=== PATIENT | female | born 1950 | race Caucasian/White ===

== ENCOUNTER → 2018-07-11 | Outpatient (CLI) | payer MEDICARE ==
--- NOTE | 2018-07-12 11:30 | MM ---
Reason for exam: screening (asymptomatic). History: Patient is postmenopausal. Family history of breast cancer in sister. Physical Findings: A clinical breast exam by your physician is recommended on an annual basis and results should be correlated with mammographic findings. MG 3D Screening Mammo W/Cad Bilateral CC and MLO view(s) were taken. No prior studies available for comparison. The breast tissue is heterogeneously dense. This may lower the sensitivity of mammography. Benign calcifications in the left breast. There is no discrete abnormality. No significant changes when compared with prior studies. ASSESSMENT: Benign, BI-RAD 2 RECOMMENDATION: Routine screening mammogram of both breasts in 1 year.
== END | disposition home or self-care (01) ==
LOC: RADMAMWWP 12:50
PROVIDERS: ATTEND Family Medicine
DX: Z12.31 Encounter for screening mammogram for malignant neoplasm of breast (principal)
CPT/HCPCS: 77063; 77067

== ENCOUNTER → 2019-05-01 | Outpatient (CLI) | payer MEDICARE ==
--- NOTE | 2019-05-01 20:59 | MR ---
EXAMINATION TYPE: MR brain wo con DATE OF EXAM: 05/01/2019 COMPARISON: NONE HISTORY: Headache / Dizziness TECHNIQUE: Multiplanar, multisequence imaging of the brain and brainstem is performed without IV cont rast. IV contrast not given as patient refused. FINDINGS: Diffusion weighted images demonstrate no evidence of a recent infarct or other diffusion abnormality. There is no worrisome extra-axial fluid collection. There is mild ventricular and sulcal prominence. There are scattered foci of T2 hyperintensity seen throughout the white matter bilaterally. Lesions a re nonspecific in appearance and distribution but most likely on basis of product of chronic small ve ssel ischemic change in patient of this age. Midline structures demonstrate normal morphology. The craniocervical junction appears within normal limits. Normal vascular flow voids are present. The visualized sinuses are clear and the globes are i ntact. No suspicious opacification mastoid air cells is present. IMPRESSION: There is mild diffuse age-related cerebral atrophy and mild to moderate chronic small ves teri ischemic change.
--- NOTE | 2019-05-01 21:01 | MR ---
EXAMINATION TYPE: MR angio neck wo con DATE OF EXAM: 05/01/2019 COMPARISON: None. HISTORY: Headache / Dizziness Standard multiplanar, multisequence MRI departmental protocol Multiplanar, multisequence images of the neck were acquired. 2-D and 3-D reconstructed images created on an independent workstation and reviewed. Exam performed without contrast. FINDINGS: There is normal 3 vessel origin from the aortic arch. Right common carotid artery shows nor mal origin from right brachiocephalic artery. There is no significant stenosis in the right common or internal carotid artery including at level by carotid bulb. This patent right external carotid arter y shows no significant focal stenosis. There is no significant plaque or stenosis or left common or internal carotid artery including at lev el of carotid bulb. There is patent external carotid artery without significant stenosis. There is codominant vertebrobasilar system. Vertebral arteries are patent to basilar junction. IMPRESSION: No significant focal stenosis in common or internal carotid arteries bilaterally.
== END | disposition home or self-care (01) ==
LOC: RADMRIMAIN 16:03
PROVIDERS: ATTEND Family Medicine
DX: G31.1 Senile degeneration of brain, not elsewhere classified (principal); I67.82 Cerebral ischemia; R51 Headache
CPT/HCPCS: 70547; 70551

== ENCOUNTER → 2020-03-25 | Outpatient (CLI) | payer MEDICARE ==
--- NOTE | 2020-03-27 07:29 | MM ---
Reason for exam: screening (asymptomatic). Last mammogram was performed 1 year and 8 months ago. History: Patient is postmenopausal. Family history of breast cancer in sister. Physical Findings: A clinical breast exam by your physician is recommended on an annual basis and results should be correlated with mammographic findings. MG 3D Screening Mammo W/Cad Bilateral CC and MLO view(s) were taken. Prior study comparison: July 11, 2018, bilateral MG 3d screening mammo w/cad. There are benign appearing dystrophic round calcifications bilaterally. There is no discrete abnormality. ASSESSMENT: Benign, BI-RAD 2 RECOMMENDATION: Routine screening mammogram of both breasts in 1 year.
== END | disposition home or self-care (01) ==
LOC: RADMAMWWP 13:50
PROVIDERS: ATTEND Family Medicine
DX: Z12.31 Encounter for screening mammogram for malignant neoplasm of breast (principal)
CPT/HCPCS: 77063; 77067

== ENCOUNTER → 2020-06-20 | Outpatient (CLI) | payer MEDICARE ==
--- NOTE | 2020-06-20 09:47 | US ---
EXAMINATION TYPE: US abdomen complete DATE OF EXAM: 06/20/2020 COMPARISON: NONE CLINICAL HISTORY: R10.12 left upper quadrant pain. EXAM MEASUREMENTS: Liver Length: 13.4 cm Gallbladder Wall: Surgically absent CBD: 1.0 cm Spleen: 8.1 cm Right Kidney: 11.6 x 4.8 x 5.7 cm Left Kidney: 10.2 x 5.4 x 5.2 cm Pancreas: appears echogenic portions are obscured by bowel gas Liver: wnl Gallbladder: Surgically absent CBD: dilated at 1.0 cm Spleen: wnl Right Kidney: No hydronephrosis or masses seen Left Kidney: stone lower pole with shadowing measures 0.8 x 0.9 cm, no hydronephrosis. Upper IVC: wnl Abd Aorta: wnl IMPRESSION: 1. Nonobstructing inferior pole left renal stone
== END | disposition home or self-care (01) ==
LOC: RADUSWWP 06:57
PROVIDERS: ATTEND Family Medicine
DX: N20.0 Calculus of kidney (principal)
CPT/HCPCS: 76700

== ENCOUNTER 2021-08-17 11:06 | Emergency (ER) | payer MEDICARE ==
[2021-08-17 11:20] VITALS: TEMP 99.4
[2021-08-17] MEDS ORDERED: HYDROmorphone 0.5 MG/0.5 ML SYRINGE IVP STA (11:29)
[2021-08-17] MEDS ORDERED: KETOROLAC 15 MG/ML 1 ML VIAL IVP STA (11:29)
[2021-08-17] MEDS ORDERED: SODIUM CHLORIDE 0.9% 1,000 ML IV STA (11:29)
[2021-08-17] MEDS ORDERED: ONDANSETRON 4 MG/2 ML VIAL IVP STA (11:32)
--- NOTE | 2021-08-17 11:34 | ED ---
General Adult HPI - General Chief complaint: Abdominal Pain Stated complaint: Diverticulitis Time Seen by Provider: 08/17/21 11:20 Source: patient, RN notes reviewed, old records reviewed Mode of arrival: ambulatory Limitations: no limitations - History of Present Illness Initial comments: This is a 70-year-old female presents emergency Department stating that she's had right-sided flank pain since last Tuesday. Patient states she has a history of diverticulitis and kidney stones. Patient states she thought was diverticulitis that she started some antibiotics that she had left over. Patient states the pain continues get worse she has vomited times one and she has had no diarrhea. Patient states pressing on her abdomen does not appear to make the pain worse. Patient denies any dysuria hematuria urinary frequency. Patient states this morning the pain started radiating to her back in the CVA region. Patient denies any shortness of breath or difficulty breathing. Patient denies any fever chills or cough. Patient denies any headache patient denies numbness weakness. - Related Data Home Medications Medication Instructions Recorded Confirmed Ciprofloxacin HCl [Cipro] 500 mg PO DIRECTED 08/17/21 08/17/21 SUMAtriptan succinate 100 mg PO BID PRN 08/17/21 08/17/21 Topiramate [Topamax] 25 - 100 mg PO DAILY PRN 08/17/21 08/17/21 metroNIDAZOLE [Flagyl] 500 mg PO DIRECTED 08/17/21 08/17/21 Previous Rx's Medication Instructions Recorded Ketorolac [Toradol] 10 mg PO Q6HR #15 tab 08/17/21 Tamsulosin [Flomax] 0.4 mg PO DAILY #10 cap 08/17/21 Allergies Allergy/AdvReac Type Severity Reaction Status Date / Time morphine AdvReac Nausea & Verified 08/17/21 11:55 Vomiting Review of Systems ROS Statement: Those systems with pertinent positive or pertinent negative responses have been documented in the HPI. ROS Other: All systems not noted in ROS Statement are negative. Past Medical History Additional Past Medical History / Comment(s): diverticulitis, migraines History of Any Multi-Drug Resistant Organisms: None Reported Past Surgical History: Cholecystectomy Past Psychological History: No Psychological Hx Reported Smoking Status: Never smoker Past Alcohol Use History: None Reported Past Drug Use History: None Reported General Exam - General Exam Comments Initial Comments: GENERAL: Patient is well-developed and well-nourished. Patient is nontoxic and well- hydrated and is in mild distress. ENT: Neck is soft and supple. No significant lymphadenopathy is noted. Oropharynx i s clear. Moist mucous membranes. Neck has full range of motion without eliciting any pain. EYES: The sclera were anicteric and conjunctiva were pink and moist. Extraocular movements were intact and pupils were equal round and reactive to light. Eyelids were unremarkable. PULMONARY: Unlabored respirations. Good breath sounds bilaterally. No audible rales rhonchi or wheezing was noted. CARDIOVASCULAR: There is a regular rate and rhythm without any murmurs gallops or rubs. ABDOMEN: Soft and nontender with normal bowel sounds. SKIN: Skin is clear with no lesions or rashes and otherwise unremarkable. NEUROLOGIC: Patient is alert and oriented x3. Cranial nerves II through XII are grossly intact. Motor and sensory are also intact. Normal speech, volume and content. Symmetrical smile. MUSCULOSKELETAL: Normal extremities with adequate strength and full range of motion. No lower extremity swelling or edema. No calf tenderness. LYMPHATICS: No significant lymphadenopathy is noted PSYCHIATRIC: Normal psychiatric evaluation. Limitations: no limitations Course Vital Signs 08/17/21 11:17 Temperature 99.4 F Pulse Rate 84 Respiratory 18 Rate Blood Pressure 133/84 O2 Sat by Pulse 96 Oximetry Medical Decision Making - Medical Decision Making CT shows an 8 mm proximal ureteral stone causing obstruction. I will back into reevaluate the patient after the patient got Toradol patient was doing considerably better felt like she can be discharged home to follow-up with urology. - Lab Data Result diagrams: 08/17/21 11:56 08/17/21 11:56 Lab Results 08/17/21 08/17/21 08/17/21 Range/Units 11:56 11:56 11:56 WBC 10.8 H (3.8-10.6) k/uL RBC 4.77 (3.80-5.40) m/uL Hgb 14.6 (11.4-16.0) gm/dL Hct 44.6 (34.0-46.0) % MCV 93.6 (80.0-100.0) fL MCH 30.6 (25.0-35.0) pg MCHC 32.7 (31.0-37.0) g/dL RDW 13.1 (11.5-15.5) % Plt Count 253 (150-450) k/uL MPV 7.9 Neutrophils % 82 % Lymphocytes % 12 % Monocytes % 4 % Eosinophils % 1 % Basophils % 0 % Neutrophils # 8.8 H (1.3-7.7) k/uL Lymphocytes # 1.3 (1.0-4.8) k/uL Monocytes # 0.4 (0-1.0) k/uL Eosinophils # 0.1 (0-0.7) k/uL Basophils # 0.0 (0-0.2) k/uL Sodium 138 (137-145) mmol/L Potassium 4.5 (3.5-5.1) mmol/L Chloride 103 (98-107) mmol/L Carbon Dioxide 24 (22-30) mmol/L Anion Gap 11 mmol/L BUN 22 H (7-17) mg/dL Creatinine 0.73 (0.52-1.04) mg/dL Est GFR (CKD-EPI)AfAm >90 (>60 ml/min/1.73 sqM) Est GFR (CKD-EPI)NonAf 83 (>60 ml/min/1.73 sqM) Glucose 117 H (74-99) mg/dL Plasma Lactic Acid Oswald (0.7-2.0) mmol/L Calcium 9.3 (8.4-10.2) mg/dL Total Bilirubin 0.9 (0.2-1.3) mg/dL AST 46 H (14-36) U/L ALT 20 (4-34) U/L Alkaline Phosphatase 65 (38-126) U/L Total Protein 7.3 (6.3-8.2) g/dL Albumin 4.2 (3.5-5.0) g/dL Amylase 45 (30-110) U/L Lipase 92 (23-300) U/L Urine Color Yellow Urine Appearance Cloudy H (Clear) Urine pH 5.0 (5.0-8.0) Ur Specific [place] 1.020 (1.001-1.035) Urine Protein Trace H (Negative) Urine Glucose (UA) Negative (Negative) Urine Ketones 1+ H (Negative) Urine Blood Small H (Negative) Urine Nitrite Negative (Negative) Urine Bilirubin Negative (Negative) Urine Urobilinogen <2.0 (<2.0) mg/dL Ur Leukocyte Esterase Large H (Negative) Urine RBC 3 (0-5) /hpf Urine WBC 31 H (0-5) /hpf Ur Squamous Epith Cells 2 (0-4) /hpf Calcium Oxalate Crystal Few H (None) /hpf Urine Mucus Many H (None) /hpf // Range/Units 11:56 WBC (3.8-10.6) k/uL RBC (3.80-5.40) m/uL Hgb (11.4-16.0) gm/dL Hct (34.0-46.0) % MCV (80.0-100.0) fL MCH (25.0-35.0) pg MCHC (31.0-37.0) g/dL RDW (11.5-15.5) % Plt Count (150-450) k/uL MPV Neutrophils % % Lymphocytes % % Monocytes % % Eosinophils % % Basophils % % Neutrophils # (1.3-7.7) k/uL Lymphocytes # (1.0-4.8) k/uL Monocytes # (0-1.0) k/uL Eosinophils # (0-0.7) k/uL Basophils # (0-0.2) k/uL Sodium (137-145) mmol/L Potassium (3.5-5.1) mmol/L Chloride (98-107) mmol/L Carbon Dioxide (22-30) mmol/L Anion Gap mmol/L BUN (7-17) mg/dL Creatinine (0.52-1.04) mg/dL Est GFR (CKD-EPI)AfAm (>60 ml/min/1.73 sqM) Est GFR (CKD-EPI)NonAf (>60 ml/min/1.73 sqM) Glucose (74-99) mg/dL Plasma Lactic Acid Oswald 1.1 (0.7-2.0) mmol/L Calcium (8.4-10.2) mg/dL Total Bilirubin (0.2-1.3) mg/dL AST (14-36) U/L ALT (4-34) U/L Alkaline Phosphatase (38-126) U/L Total Protein (6.3-8.2) g/dL Albumin (3.5-5.0) g/dL Amylase (30-110) U/L Lipase (23-300) U/L Urine Color Urine Appearance (Clear) Urine pH (5.0-8.0) Ur Specific [place] (1.001-1.035) Urine Protein (Negative) Urine Glucose (UA) (Negative) Urine Ketones (Negative) Urine Blood (Negative) Urine Nitrite (Negative) Urine Bilirubin (Negative) Urine Urobilinogen (<2.0) mg/dL Ur Leukocyte Esterase (Negative) Urine RBC (0-5) /hpf Urine WBC (0-5) /hpf Ur Squamous Epith Cells (0-4) /hpf Calcium Oxalate Crystal (None) /hpf Urine Mucus (None) /hpf Disposition Clinical Impression: Kidney stone, Hydroureter Disposition: HOME SELF-CARE Condition: Good Instructions (If sedation given, give patient instructions): Kidney Stones (ED) Prescriptions: Tamsulosin [Flomax] 0.4 mg PO DAILY #10 cap Ketorolac [Toradol] 10 mg PO Q6HR #15 tab Is patient prescribed a controlled substance at d/c from ED?: No Referrals: Eren Pina MD [STAFF PHYSICIAN] - 1-2 days
[2021-08-17 12:18] LABS: Basophils % (A) 0 %; Eosinophils # (A) 0.1 k/uL (0-0.7); Eosinophils % (A) 1 %; HCT 44.6 % (34.0-46.0); HGB 14.6 gm/dL (11.4-16.0); Lymphocytes # (A) 1.3 k/uL (1.0-4.8); Lymphocytes % (A) 12 %; MCH 30.6 pg (25.0-35.0); MCHC 32.7 g/dL (31.0-37.0); MCV 93.6 fL (80.0-100.0); Mean Platelet Volume 7.9; Monocytes # (A) 0.4 k/uL (0-1.0); Monocytes % (A) 4 %; Neutrophils # (A) 8.8 k/uL (1.3-7.7); Neutrophils % (A) 82 %; Platelet Count 253 k/uL (150-450); RBC 4.77 m/uL (3.80-5.40); RDW 13.1 % (11.5-15.5); WBC 10.8 k/uL (3.8-10.6)
[2021-08-17 12:33] LABS: ALT 20 U/L (4-34); AST 46 U/L (14-36); African American GFR (CKD) >90 (>60 ml/min/1.73 sqM); Albumin 4.2 g/dL (3.5-5.0); Alkaline Phosphatase 65 U/L (38-126); Amylase 45 U/L (30-110); Anion Gap 11 mmol/L; Blood Urea Nitrogen 22 mg/dL (7-17); Calcium 9.3 mg/dL (8.4-10.2); Carbon Dioxide 24 mmol/L (22-30); Chloride 103 mmol/L (98-107); Glucose 117 mg/dL (74-99); Lipase 92 U/L (23-300); Non-African American GFR(CKD) 83 (>60 ml/min/1.73 sqM); Sodium 138 mmol/L (137-145); Total Bilirubin 0.9 mg/dL (0.2-1.3); Total Protein 7.3 g/dL (6.3-8.2)
[2021-08-17 12:36] LABS: Potassium 4.5 mmol/L (3.5-5.1)
[2021-08-17 12:46] LABS: Appearance,Urine Cloudy (Clear); Bilirubin,Urine Negative (Negative); Blood,Urine Small (Negative); Calcium Oxalate Crystals,Urine Few /hpf; Color,Urine Yellow; Glucose,Urine (UA) Negative (Negative); Ketones,Urine 1+ (Negative); Leukocyte Esterase,Urine Large (Negative); Mucus,Urine Many /hpf; Nitrite,Urine Negative (Negative); Protein,Urine Trace (Negative); RBC,Urine 3 /hpf (0-5); Squamous Epithelial Cell,Urine 2 /hpf (0-4); Urobilinogen,Urine <2.0 mg/dL (<2.0); WBC,Urine 31 /hpf (0-5)
--- NOTE | 2021-08-17 13:13 | CT ---
EXAMINATION TYPE: CT abdomen pelvis wo con DATE OF EXAM: 08/17/2021 COMPARISON: None HISTORY: 70-year-old female Left sided abdominal pain CT DLP: 576.1 mGycm. Automated exposure control for dose reduction was used. TECHNIQUE: Contiguous axial scanning of the abdomen and pelvis without IV contrast. Coronal and sagit deja reconstructions performed. FINDINGS: Heart normal size without pericardial effusion. Some strandy atelectasis at the posterior lung bases without pleural effusion. Small hiatal hernia. Focal eventration anterior right hemidiaphragm. Noncontrast appearance of the liver, adrenal glands, spleen, and pancreas show no gross of value. Cholecystectomy clips. There is a 3.8 cm diverticulum of the third portion of the duodenum projecting superiorly into the pa ncreatic head region. A few punctate 1 mm nonobstructive right renal calculi. There is moderate left hydronephrosis and an 8 mm calculus in the upper left ureter. No dilated small bowel, free fluid, or free air. No mesenteric or retroperitoneal lymphadenopathy. Normal appendix. Mild stool burden. Left-sided clonic diverticulosis, greatest in the proximal sigmoid colon. No peric olonic inflammatory changes. Bladder partially distended. There are a couple dependent bladder calculi measuring up to 7 mm. Uteru s anteverted. Multiple pelvic phleboliths. There is a drop surgical clip in the cul-de-sac. Small adi ateral ovaries. No abnormal fluid collection in the pelvis or pelvic lymphadenopathy. Bones: Osteitis pubis. Mild degenerative change at the hips, left greater than right. Moderate to ad vanced degenerative disc disease mid to lower lumbar spine with hypertrophic facet arthropathy. IMPRESSION: 1. An 8 mm proximal left ureteral calculus with moderate obstructive uropathy. 2. A couple small dependent bladder calculi measuring up to 7 mm. Additional few punctate 1 mm nonob structive right renal calculi. 3. Left-sided colonic diverticulosis without acute diverticulitis. Small hiatal hernia.
[2021-08-17 14:22] VITALS: BP 118/90; PULSE 81; RESP 16
== END 2021-08-17 14:29 | disposition home or self-care (01) ==
LOC: EC 11:06
DX: N20.0 Calculus of kidney (principal); N13.4 Hydroureter; Z88.5 Allergy status to narcotic agent; Z90.49 Acquired absence of other specified parts of digestive tract
CPT/HCPCS: 99284; 96374; 96375; 96361 ×2; 36415; 80053; 82150; 83605; 83690; 85025; 81001; 87086; 74176; J2405; J1885

== ENCOUNTER → 2021-08-20 | Outpatient (CLI) | payer MEDICARE ==
--- NOTE | 2021-08-21 08:40 | XR ---
EXAMINATION TYPE: XR KUB DATE OF EXAM: 08/20/2021 COMPARISON: NONE HISTORY: Pain TECHNIQUE: One view abdominal series FINDINGS: The osseous structures are intact. The bowel gas pattern is nonspecific. Hypertrophic and degenerati ve change of the spine with arthropathy of the hips. Osteitis pubis symphysis. Calcifications in pelv is are likely vascular. Surgical clips in the upper abdomen. There is a 3.5 mm calcification adjacent to the left transverse process of L4 which could be in the c ourse of the left ureter. IMPRESSION: 1. 3.5 mm in diameter and long axis of 7 mm left paraspinal line level L4 likely representing uretera l calculus. 2. Punctate calcifications in the pelvis have been reported by previous CT scan to represent bladder calculi..
== END | disposition home or self-care (01) ==
LOC: RADXRMAIN 16:09
PROVIDERS: ATTEND Urology
DX: N20.1 Calculus of ureter (principal)
CPT/HCPCS: 74018

== ENCOUNTER 2021-08-24 06:54 | Day surgery (SDC) | payer MEDICARE ==
[2021-08-21 09:37] VITALS: BMI 27.4
--- NOTE | 2021-08-22 10:29 | P.GSHP ---
History of Present Illness H&P Date: 08/22/21 Chief Complaint: Left renal colic The patient is a 70-year-old white female with a history of urolithiasis. She underwent successful left extracorporal shockwave lithotripsy (ESWL) in 2012. On 08/10/2021 she experienced acute onset of left flank and abdominal pain. Computed tomography scan showed moderate left hydronephrosis due to an 8 mm left proximal ureteral calculus. She was offered the options of medical expulsion therapy, ESWL, and ureteroscopy with laser lithotripsy. The pros, cons, and risks of each were discussed and she has elected to undergo ESWL. - Constitutional Constitutional: Reports chills, Denies fever - Gastrointestinal Gastrointestinal: Reports nausea, Reports vomiting - Genitourinary (Female) Genitourinary: Reports flank pain, Reports kidney stones, Denies hematuria Past Medical History Past Medical History: GERD/Reflux Additional Past Medical History / Comment(s): Diverticulitis, migraines, low BP, hx of kidney stones, current left kidney stone. History of Any Multi-Drug Resistant Organisms: None Reported Past Surgical History: Cholecystectomy Past Anesthesia/Blood Transfusion Reactions: Previous Problems w/ Anesthesia, Family History of Problems w/ Anesthesia, Motion Sickness, Postoperative Nausea & Vomiting (PONV) Additional Past Anesthesia/Blood Transfusion Reaction / Comment(s): Patient and sister slow to wake up. Past Psychological History: No Psychological Hx Reported Smoking Status: Never smoker Past Alcohol Use History: None Reported Past Drug Use History: None Reported - Past Family History Brother(s) Family Medical History: Cancer Additional Family Medical History / Comment(s): 3 brothers had cancer. Sister(s) Family Medical History: Cancer Medications and Allergies Home Medications Medication Instructions Recorded Confirmed Type Ketorolac [Toradol] 10 mg PO Q6HR #15 tab 08/17/21 08/21/21 Rx SUMAtriptan succinate 100 mg PO BID PRN 08/17/21 08/21/21 History Tamsulosin [Flomax] 0.4 mg PO DAILY #10 cap 08/17/21 08/21/21 Rx Topiramate [Topamax] 25 - 100 mg PO DAILY PRN 08/17/21 08/21/21 History [place] (Unknown Dose) 1 tab PO DIRECTED PRN 08/21/21 08/21/21 History Allergies Allergy/AdvReac Type Severity Reaction Status Date / Time morphine AdvReac Nausea & Verified 08/21/21 09:28 Vomiting Surgical - Exam - General well developed, well nourished, no distress - Neck no masses, trachea midline - Respiratory normal respiratory effort - Abdomen Abdomen: soft, tender (Mild left lower quadrant tenderness to palpation), no guarding, no rigid, no rebound - Psychiatric oriented to time, oriented to person, oriented to place, speech is normal, memory intact Results - Imaging Abdominal x-ray: report reviewed, image reviewed CT scan - abdomen: report reviewed, image reviewed Assessment and Plan (1) Calculus of ureter Status: Acute Code(s): N20.1 - CALCULUS OF URETER SNOMED Code(s): 62666856 Plan: Left extracorporal shockwave lithotripsy (ESWL). The procedure then reviewed in detail with the patient. She is aware of potential risks, which include anesthesia, renal contusion, perinephric hematoma, treatment failure, incomplete fragmentation, and [place]str[place]. She is aware of the possible need for secondary treatment.
--- NOTE | 2021-08-24 07:24 | XR ---
EXAMINATION TYPE: XR KUB DATE OF EXAM: 08/24/2021 7:14 AM CLINICAL HISTORY: Abdominal pain. Left-sided kidney stone. TECHNIQUE: Two supine KUB images of the abdomen are obtained. COMPARISON: Abdominal x-ray [address] abdomen and pelvis one week ago.. FINDINGS: Stable 10 mm calculus proximal to mid left ureter at L4 level. Overall nonobstructive bowel gas pattern. Sclerosis at pubic symphysis. Overlying bra strap. IMPRESSION: As above.
[2021-08-24 08:08] VITALS: RESP 16; TEMP 98.5
[2021-08-24] MEDS ORDERED: ONDANSETRON 4 MG/2 ML VIAL ONE (08:16)
[2021-08-24] MEDS ORDERED: LACTATED RINGERS 1,000 ML IV ONE (08:18)
[2021-08-24] MEDS ORDERED: LIDOCAINE 1% (10MG/ML) FOR IV START INTRADERMA ONE (08:19)
[2021-08-24] MEDS ORDERED: PROPOFOL 10 MG/ML 20 ML VIAL IV ONE (08:41)
[2021-08-24] MEDS ORDERED: KETAMINE 10 MG/ML 20 ML VIAL ONE (08:41)
[2021-08-24] MEDS ORDERED: MIDAZOLAM 2 MG/2 ML VIAL ONE (08:41)
[2021-08-24] MEDS ORDERED: .fentaNYL (PF) 50 MCG/ML 2 ML AMP ONE (08:41)
[2021-08-24] MEDS ORDERED: FUROSEMIDE 10 MG/ML 2 ML VIAL ONE (08:41)
--- NOTE | 2021-08-24 09:27 | P.OP ---
Date of Procedure: 08/24/21 Preoperative Diagnosis: Left ureteral calculus Postoperative Diagnosis: Same Procedure(s) Performed: Left extracorporal shockwave lithotripsy (ESWL) Anesthesia: MAC Surgeon: Xiang Urena Estimated Blood Loss (ml): 0 IV fluids (ml): 500 Pathology: none sent Condition: stable Disposition: PACU Indications for Procedure: The patient is a 70-year-old white female with a history of urolithiasis. She underwent successful left extracorporal shockwave lithotripsy (ESWL) in 2012. On 08/10/2021 she experienced acute onset of left flank and abdominal pain. Computed tomography scan showed moderate left hydronephrosis due to an 8 mm left proximal ureteral calculus. She was offered the options of medical expulsion therapy, ESWL, and ureteroscopy with laser lithotripsy. The pros, cons, and risks of each were discussed and she has elected to undergo ESWL. Operative Findings: Excellent fragmentation of left proximal ureteral calculus. Description of Procedure: The patient was taken to the operating room and placed on the Dornier Compact Delta II lithotripter in the supine position. The calculus was seen on biplanar fluoroscopy. Lasix 10 mg was given intravenously. Once the patient was properly positioned and sedated, lithotripsy was performed. The energy level was gradually increased per protocol, to an energy level of 5. After 100 shocks were administered, a 2 minute pause was instituted per protocol. A total of 2500 shocks were given at a rate of 80 shocks per minute. Fluoroscopy was utilized at a minimum to ensure proper positioning and determine the treatment status. The calculus changed in appearance, consistent with fragmentation. The patient tolerated the procedure well was taken to the recovery room in stable condition. Instructions were given to strain the urine, and the patient will follow-up within one week.
[2021-08-24 09:50] VITALS: PULSE 63
[2021-08-24 10:06] VITALS: BP 118/71
== END 2021-08-24 10:39 | disposition home or self-care (01) ==
LOC: ORWHC2ENDO 06:54
PROVIDERS: ATTEND Urology
DX: N13.2 Hydronephrosis with renal and ureteral calculous obstruction (principal); K21.9 Gastro-esophageal reflux disease without esophagitis; K57.90 Diverticulosis of intestine, part unspecified, without perforation or abscess without bleeding; G43.909 Migraine, unspecified, not intractable, without status migrainosus; Z79.899 Other long term (current) drug therapy; Z87.442 Personal history of urinary calculi; Z88.5 Allergy status to narcotic agent
CPT/HCPCS: 74018; 50590; J2250; J1940; J2405; J3010; J2704

== ENCOUNTER → 2021-09-01 | Outpatient (CLI) | payer MEDICARE ==
--- NOTE | 2021-09-01 13:28 | XR ---
EXAMINATION TYPE: XR KUB DATE OF EXAM: 09/01/2021 COMPARISON: 08/24/2021 HISTORY: Post lithotripsy TECHNIQUE: One view abdominal series FINDINGS: The previously noted left paraspinal calcification is not seen with certainty. Arthropathy of the hip s and osteitis pubis is convincing is noted. Arthropathy of the SI joints degenerative change of the spine. Nonspecific bowel gas pattern with no obstruction. Surgical clips right upper quadrant. Tiny c alcifications in pelvis are similar to the prior exam and likely vascular. Single surgical clip again noted in IMPRESSION: 1. Left paraspinal calcification is no longer seen on today's exam.
== END | disposition home or self-care (01) ==
LOC: RADXRMAIN 13:09
PROVIDERS: ATTEND Urology
DX: Z48.816 Encounter for surgical aftercare following surgery on the genitourinary system (principal)
CPT/HCPCS: 74018

== ENCOUNTER → 2021-10-06 | Outpatient (CLI) | payer MEDICARE ==
--- NOTE | 2021-10-06 09:05 | US ---
EXAMINATION TYPE: US kidneys/renal and bladder DATE OF EXAM: 10/06/2021 COMPARISON: CT June 20, 2020 and August 17, 2021. Most recent x-ray September 01, 2021 CLINICAL HISTORY: N20.1 CALCULUS OF URETER LT, N13.2 HYDRONEPHROSIS. History of left renal stone with lithotripsy. EXAM MEASUREMENTS: Right Kidney: 10.9 x 4.9 x 4.5 cm Left Kidney: 9.4 x 5.9 x 5.9 cm Right Kidney: No hydronephrosis or masses seen Left Kidney: No hydronephrosis or masses seen Bladder: Not fully distended Bilateral Jets seen: Yes There is no evidence for hydronephrosis at this point in time bilaterally. No nephrolithiasis is see n. No masses are identified. The urinary bladder is satisfactorily distended. Bilateral ureteral j ets are seen. IMPRESSION: No hydronephrosis seen currently. Successful treatment of obstructing left ureter calculu s is felt present.
== END | disposition home or self-care (01) ==
LOC: RADUSWWP 08:15
PROVIDERS: ATTEND Urology
DX: N20.1 Calculus of ureter (principal)
CPT/HCPCS: 76770

== ENCOUNTER → 2021-12-29 | Outpatient (CLI) | payer MEDICARE ==
--- NOTE | 2021-12-29 22:34 | BD ---
EXAMINATION TYPE: Axial Bone Density DATE OF EXAM: 12/29/2021 COMPARISON: NONE CLINICAL HISTORY: 71 years year old Female. ICD-10 CODE: Z78.0 Post menopausal w/o HRT Height: 5 FT 2 1/2 IN Weight: 160 FRAX RISK QUESTIONS: Alcohol (3 or more units per day): NO Family History (Parent hip fracture): NO Glucocorticoids (More than 3mos): NO (Ex: prednisone, prednisolone, methylprednisolone, dexamethasone, and hydrocortisone). History of Fracture in Adulthood: NO Secondary Osteoporosis: 1. Type 1 Diabetes: NO 2. Hyperthyroidism: NO 3. Menopause before 45: NO 4. Malnutrition: NO 5. Chronic liver disease: NO Rheumatoid Arthritis: YES Current Tobacco Use: NO RISK FACTORS HISTORY OF: Surgery to Spine/Hip(right/left)/Wrist (right/left): NO Family History of Osteoporosis: NO Active: YES Diet low in dairy products/other sources of calcium: NO Postmenopausal woman: YES Take estrogen and/or progesterone medications: NO Lost more than 2 inches in height since high school: YES Frequent falls: NO Poor Health: GOOD Hyperparathyroidism: NO Adrenal Insufficiency: NO MEDICATIONS: Additional Medications: MIGRAINE MEDS Additional History: EXAM MEASUREMENTS: Bone mineral densitometry was performed using the [employer] System. Bone mineral density as measured about the Lumbar spine is: ----- L1-L4(G/cm2): 0.993 T Score Values are as follows: ----- L1: -1.6 ----- L2: -2.7 ----- L3: -1.2 ----- L4: -1.0 ----- L1-L4: -1.6 BASELINE Bone mineral density about the R hip (g/cm2): 0.716 Bone mineral density about the L hip (g/cm2): 0.677 T Score values are as follows: -----R Neck: -2.3 -----L Neck: -2.6 -----R Total: -1.9 -----L Total: -1.9 BASELINE FRAX%s: The graph provided illustrates a 16.7 % chance for a major osteoporotic fx and a 5.1 % chance for the hips probability for fx in 10 years time. IMPRESSION: Osteoporosis (T Score less than -2.5) at the femoral neck level in the left hip. There is increased fracture risk and therapy is usually indicated based on age. Re-Screen 1-2 years. NOTE: T-SCORE=SD OF THE YOUNG ADULT MEAN.
--- NOTE | 2021-12-30 12:26 | MM ---
Reason for exam: screening (asymptomatic). Last mammogram was performed 1 year and 9 months ago. History: Patient is postmenopausal. Family history of breast cancer in sister. Physical Findings: A clinical breast exam by your physician is recommended on an annual basis and results should be correlated with mammographic findings. MG 3D Screening Mammo W/Cad Bilateral CC and MLO view(s) were taken. XCCL view(s) were taken of the right breast. Prior study comparison: March 25, 2020, bilateral MG 3d screening mammo w/cad. July 11, 2018, bilateral MG 3d screening mammo w/cad. The breast tissue is heterogeneously dense. This may lower the sensitivity of mammography. No significant changes when compared with prior studies. ASSESSMENT: Benign, BI-RAD 2 RECOMMENDATION: Routine screening mammogram of both breasts in 1 year.
== END | disposition home or self-care (01) ==
LOC: RADMAMWWP 07:38
PROVIDERS: ATTEND Family Medicine
DX: Z12.31 Encounter for screening mammogram for malignant neoplasm of breast (principal); M81.0 Age-related osteoporosis without current pathological fracture; Z78.0 Asymptomatic menopausal state; Z80.3 Family history of malignant neoplasm of breast
CPT/HCPCS: 77063; 77067; 77080

== ENCOUNTER 2023-07-10 15:13 | Emergency (ER) | payer MEDICARE ==
[2023-07-10 15:23] VITALS: TEMP 98.2
[2023-07-10] MEDS ORDERED: SODIUM CHLORIDE 0.9% 1,000 ML IV STA (16:04)
[2023-07-10] MEDS ORDERED: ASPIRIN 81 MG PO STA (16:04)
[2023-07-10] MEDS ORDERED: LIDOCAINE 5% PATCH TOPICAL STA (16:05)
[2023-07-10] MEDS ORDERED: KETOROLAC 15 MG/ML 1 ML VIAL IVP STA (16:05)
[2023-07-10] MEDS ORDERED: CYCLOBENZAPRINE 5 MG TAB PO STA (16:06)
[2023-07-10 16:20] LABS: Basophils % (A) 0 %; Eosinophils # (A) 0.1 k/uL (0-0.7); Eosinophils % (A) 1 %; HCT 41.2 % (34.0-46.0); HGB 13.7 gm/dL (11.4-16.0); Lymphocytes # (A) 1.9 k/uL (1.0-4.8); Lymphocytes % (A) 19 %; MCHC 33.3 g/dL (31.0-37.0); MCV 92.9 fL (80.0-100.0); Mean Platelet Volume 7.9; Monocytes # (A) 0.5 k/uL (0-1.0); Monocytes % (A) 5 %; Neutrophils # (A) 7.3 k/uL (1.3-7.7); Neutrophils % (A) 74 %; Platelet Count 268 k/uL (150-450); RBC 4.43 m/uL (3.80-5.40); RDW 12.7 % (11.5-15.5); WBC 9.9 k/uL (3.8-10.6)
--- NOTE | 2023-07-10 16:24 | XR ---
EXAMINATION TYPE: XR chest 2V DATE OF EXAM: 07/10/2023 COMPARISON: NONE HISTORY: Chest pain TECHNIQUE: Frontal and lateral views of the chest are obtained. FINDINGS: There is no focal air space opacity, pleural effusion, or pneumothorax seen. The cardiac silhouette size is within normal limits. There is mild prominence of the interstitium possibly chronic in taylor ure. The osseous structures are intact. IMPRESSION: No acute cardiopulmonary process.
[2023-07-10 16:32] LABS: INR 0.9 (<1.2); Partial Thromboplastin Time 23.3 sec (22.0-30.0); Prothrombin Time 10.5 sec (10.0-12.5)
[2023-07-10 16:38] LABS: ALT 18 U/L (4-34); AST 20 U/L (14-36); African American GFR (CKD) 88 (>60 ml/min/1.73 sqM); Alkaline Phosphatase 63 U/L (38-126); Anion Gap 11 mmol/L; Blood Urea Nitrogen 12 mg/dL (7-17); Calcium 9.4 mg/dL (8.4-10.2); Carbon Dioxide 25 mmol/L (22-30); Chloride 103 mmol/L (98-107); Glucose 86 mg/dL (74-99); Lipase 262 U/L (23-300); Magnesium 1.4 mg/dL (1.6-2.3); Non-African American GFR(CKD) 76 (>60 ml/min/1.73 sqM); Potassium 3.8 mmol/L (3.5-5.1); Sodium 139 mmol/L (137-145); Total Bilirubin 0.8 mg/dL (0.2-1.3); Total Protein 7.1 g/dL (6.3-8.2)
--- NOTE | 2023-07-10 16:42 | CT ---
EXAMINATION TYPE: CT cervical spine wo con DATE OF EXAM: 07/10/2023 COMPARISON: None HISTORY: left radiculopathy neck pain CT DLP: 298.8 mGycm Automated exposure control for dose reduction was used. TECHNIQUE: CT scan of the cervical spine is obtained without contrast, axial images are obtained, sa gittal and coronal reformatted images are also reviewed. FINDINGS: The craniovertebral junction relationships and prevertebral soft tissues are normal. The cervical vertebral segments are normal in height and alignment and there is no fracture subluxati on. There is moderate degenerative disc disease from C3 through C7 where there is moderate disc space fredrick rowing and spondylosis. There is moderate degenerative change of the uncovertebral joints in the mid and lower cervical spine but there is no significant bony encroachment of the neural foramina or cervical canal. IMPRESSION: Moderate degenerative disc disease and osteoarthritic change of the uncovertebral joints as described above.
[2023-07-10 16:46] VITALS: RESP 18
--- NOTE | 2023-07-10 17:31 | CT ---
EXAMINATION TYPE: CT chest angio for PE DATE OF EXAM: 07/10/2023 COMPARISON: None HISTORY: Chest pain, high d-dimer CT DLP: 372.6 mGycm Automated exposure control for dose reduction was used. CONTRAST: CT Chest for pulmonary embolism performed with with IV Contrast, patient injected with 80 cc mL of Is ovue 370. FINDINGS: LUNGS: The lungs are grossly clear, there is no concerning parenchymal mass or nodule identified. T here is no pleural effusion or pneumothorax seen. The tracheobronchial tree is patent. MEDIASTINUM: There is satisfactory enhancement of the pulmonary artery and its branches, there is no CT evidence for pulmonary embolism. There are no greater than 1 cm hilar or mediastinal lymph nodes. No pericardial effusion is seen. OTHER: No additional significant abnormality is seen. IMPRESSION: 1. No evidence of pulmonary embolism. 2. No acute cardiopulmonary disease.
--- NOTE | 2023-07-10 20:10 | ED ---
General Adult HPI - General Chief complaint: Chest Pain Stated complaint: shoulder pain Time Seen by Provider: 07/10/23 15:34 Source: patient, RN notes reviewed, old records reviewed Mode of arrival: ambulatory Limitations: no limitations - History of Present Illness Initial comments: Patient is a 72-year-old female presents with the Department complaining of left shoulder pain. States she began experiencing left shoulder pain after trying to lift a box of puppies 2 days ago. States it is progressively getting worse. Seems to radiate towards her left neck, and also down into her the top part of her left chest. Denies any fevers, chills, cough. Has no cardiac history. No history of hyperlipidemia. Pain is worse with movement of the left shoulder. Improved with rest. Has not taken much in terms of analgesic medication at home for treatment. Denies any abdominal pain, nausea, vomiting, diaphoretic episodes. He presents for further evaluation at this time. No history of cardiac stents. No family history of cardiac issues. - Related Data Home Medications Medication Instructions Recorded Confirmed SUMAtriptan succinate 100 mg PO BID PRN 08/17/21 07/10/23 Topiramate [Topamax] 75 mg PO HS 08/17/21 07/10/23 Previous Rx's Medication Instructions Recorded Cyclobenzaprine [Flexeril] 5 mg PO BID PRN 7 Days #14 tablet 07/10/23 Lidocaine 5% Patch [Lidoderm 5% 1 patch TOPICAL DAILY PRN 7 Days 07/10/23 Patch] #14 patch Allergies Allergy/AdvReac Type Severity Reaction Status Date / Time chlordiazepoxide Allergy Hallucinati Verified 07/10/23 17:50 [From Librium] ons morphine AdvReac Nausea & Verified 07/10/23 17:50 Vomiting Review of Systems ROS Statement: Those systems with pertinent positive or pertinent negative responses have been documented in the HPI. Review of Systems: CONST: Denies fever EYES: Denies blurry vision ENT: Denies nasal congestion C/V: Denies Chest pain RESP: Denies shortness of breath GI: Denies abdominal pain : Denies dysuria SKIN: Denies rash. MSK: Endorses Shoulder pain NEURO: Denies headache ROS Other: All systems not noted in ROS Statement are negative. Past Medical History Past Medical History: GERD/Reflux Additional Past Medical History / Comment(s): Diverticulitis, migraines, low BP, hx of kidney stones, current left kidney stone. History of Any Multi-Drug Resistant Organisms: None Reported Past Surgical History: Cholecystectomy Past Anesthesia/Blood Transfusion Reactions: Previous Problems w/ Anesthesia, Family History of Problems w/ Anesthesia, Motion Sickness, Postoperative Nausea & Vomiting (PONV) Additional Past Anesthesia/Blood Transfusion Reaction / Comment(s): Patient and sister slow to wake up. Past Psychological History: No Psychological Hx Reported Smoking Status: Never smoker Past Alcohol Use History: None Reported Past Drug Use History: None Reported - Past Family History Brother(s) Family Medical History: Cancer Additional Family Medical History / Comment(s): 3 brothers had cancer. Sister(s) Family Medical History: Cancer General Exam - General Exam Comments Initial Comments: General: Appears in no acute distress. HEAD: Normal with no signs of head trauma. EYES: PERRLA, EOMI, conjunctiva normal, no discharge. ENT: Hearing grossly intact, normal oropharynx. RESPIRATORY: Clear breath sounds bilaterally. No wheezes, rales, or rhonchi. C/V: Regular rate and rhythm. S1 and S2 auscultated, no edema, peripheral pulses 2+ and intact throughout ABD: Abd is soft, nontender, nondistended EXT: Decreased range of motion of the left shoulder secondary to pain. Rest palpation in the left deltoid, left trapezius muscle, left superior pectoral muscle. Worse with movement. Normal range of motion passively. Neurovascular intact throughout. SKIN: No rashes or lesions observed on exposed skin. NEURO: Alert and oriented 4 Limitations: no limitations Course Vital Signs 07/10/23 07/10/23 15:15 16:35 Temperature 98.2 F Pulse Rate 82 87 Respiratory 20 18 Rate Blood Pressure 131/83 O2 Sat by Pulse 94 L Oximetry Medical Decision Making - Medical Decision Making Was pt. sent in by a medical professional or institution (, PA, INTERNET PROGRAMMER, urgent care, hospital, or snf...) When possible be specific @ -No Did you speak to anyone other than the patient for history (EMS, parent, family, police, friend...)? What history was obtained from this source @ -No Did you review nursing and triage notes (agree or disagree)? Why? @ -I reviewed and agree with nursing and triage notes, except patient is complaining more of left shoulder pain with some radiation towards the left chest. Triage indicated was more of a chest pain with radiation. Primary complaint is reproducible what appears appears to be muscular skeletal left shoulder pain. Were old charts reviewed (outside hosp., previous admission, EMS record, old EKG, old radiological studies, urgent care reports/EKG's, snf records)? Report findings @ -Old charts reviewed Differential Diagnosis (chest pain, altered mental status, abdominal pain women, abdominal pain men, vaginal bleeding, weakness, fever, dyspnea, syncope, headache, dizziness, GI bleed, back pain, seizure, CVA, palpatations, mental health, musculoskeletal)? @ -Differential Musculoskeletal Muscular strain, contusion, ligament sprain, fracture, arthritis, septic arthritis, bursitis, cellulitis, muscle spasm, nerve compression, DVT, arterial occlusion, herpes zoster, electrolyte abnormality, tumor.... This is not meant to be in all inclusive list Differential Chest Pain: Stable Angina, Unstable Angina, STEMI, NSTEMI Aortic Dissection, Pneumothorax, Musculoskeletal, Esophageal Spasm GERD, Cholecystitis, Pancreatitis, Zoster, this is not meant to be an all-inclusive list. EKG interpreted by me (3pts min.). @ -As above X-rays interpreted by me (1pt min.). @ -Ray reveals no evidence of acute cardiopulmonary process. CT interpreted by me (1pt min.). @ -Cervical spine CT negative for any obvious injury. CT PE negative for pulmonary embolus. U/S interpreted by me (1pt. min.). @ -None done What testing was considered but not performed or refused? (CT, X-rays, U/S, labs)? Why? @ -None What meds were considered but not given or refused? Why? @ -None Did you discuss the management of the patient with other professionals (prof junior i.e. , PA, INTERNET PROGRAMMER, lab, RT, psych nurse, social services specialist, trial lawyer, teacher, contracts officer, caseworker protective services)? Give summary @ -No Was smoking cessation discussed for >3mins.? @ -No Was critical care preformed (if so, how long)? @ -No Were there social determinants of health that impacted care today? How? (Homelessness, low income, unemployed, alcoholism, drug addiction, transportat ion, low edu. Level, literacy, decrease access to med. care, penitentiary, rehab)? @ -No Was there de-escalation of care discussed even if they declined (Discuss DNR or withdrawal of care, Hospice)? DNR status @ -No What co-morbidities impacted this encounter? (DM, HTN, Smoking, COPD, CAD, Cancer, CVA, ARF, Chemo, Hep., AIDS, mental health diagnosis, sleep apnea, morbid obesity)? @ -None Was patient admitted / discharged? Hospital course, mention meds given and route, prescriptions, significant lab abnormalities, going to OR and other pertinent info. @ -Based on the patient's presentation and physical exam, presents with what appears to be musculoskeletal shoulder pain. Workup started in triage. We'll complete cardiopulmonary workup. Patient was symptomatically treated with aspirin, Flexeril, Toradol, lidocaine patch and 1 L fluid bolus. Patient agreement this plan. Vital signs within acceptable limits. EKG normal. Chest x-ray and cervical spine CT negative for any obvious acute process. Patient's labs remarkable for undetectable troponin, as well as an elevated d-dimer 3.28. I did discuss with the patient the elevated d-dimer and we will obtain CT PE. She was in agreement this plan. CTPE negative for pulmonary embolism. 3 hour troponin also negative. Patient's heart score is low at 2-3 with 2 negative troponins. Discussed with the patient and she would like to go home. Diagnosis likely muscle strain. Recommended follow-up with PCP. She was in agreement this plan. Strict return precautions discussed. I instructed the patient to follow up with their PCP in the next 1-3 days. I explained that the patient should return to the emergency department if they experience any worsening symptoms. Strict return precautions were discussed with the patient. The patient expressed understanding of these instructions. I answer ed all questions that the patient had. The patient was discharged home in good condition with their prescriptions and follow up information. Undiagnosed new problem with uncertain prognosis? @ -No Drug Therapy requiring intensive monitoring for toxicity (Heparin, Nitro, Insulin, Cardizem)? @ -No Were any procedures done? @ -No Diagnosis/symptom? @ -Left shoulder strain Acute, or Chronic, or Acute on Chronic? @ -Acute Uncomplicated (without systemic symptoms) or Complicated (systemic symptoms)? @ -Uncomplicated Side effects of treatment? @ -No Exacerbation, Progression, or Severe Exacerbation? @ -No Poses a threat to life or bodily function? How? (Chest pain, USA, MD, pneumonia, PE, COPD, DKA, ARF, appy, cholecystitis, CVA, Diverticulitis, Homicidal, Suicidal, threat to staff... and all critical care pts) @ -No - Lab Data Result diagrams: 07/10/23 16:08 07/10/23 16:08 Lab Results 07/10/23 07/10/23 07/10/23 Range/Units 16:08 16:08 16:08 WBC 9.9 (3.8-10.6) k/uL RBC 4.43 (3.80-5.40) m/uL Hgb 13.7 (11.4-16.0) gm/dL Hct 41.2 (34.0-46.0) % MCV 92.9 (80.0-100.0) fL MCH 31.0 (25.0-35.0) pg MCHC 33.3 (31.0-37.0) g/dL RDW 12.7 (11.5-15.5) % Plt Count 268 (150-450) k/uL MPV 7.9 Neutrophils % 74 % Lymphocytes % 19 % Monocytes % 5 % Eosinophils % 1 % Basophils % 0 % Neutrophils # 7.3 (1.3-7.7) k/uL Lymphocytes # 1.9 (1.0-4.8) k/uL Monocytes # 0.5 (0-1.0) k/uL Eosinophils # 0.1 (0-0.7) k/uL Basophils # 0.0 (0-0.2) k/uL PT 10.5 (10.0-12.5) sec INR 0.9 (<1.2) APTT 23.3 (22.0-30.0) sec D-Dimer 3.28 H (<0.60) mg/L FEU Sodium 139 (137-145) mmol/L Potassium 3.8 (3.5-5.1) mmol/L Chloride 103 (98-107) mmol/L Carbon Dioxide 25 (22-30) mmol/L Anion Gap 11 mmol/L BUN 12 (7-17) mg/dL Creatinine 0.77 (0.52-1.04) mg/dL Est GFR (CKD-EPI)AfAm 88 (>60 ml/min/1.73 sqM) Est GFR (CKD-EPI)NonAf 76 (>60 ml/min/1.73 sqM) Glucose 86 (74-99) mg/dL Calcium 9.4 (8.4-10.2) mg/dL Magnesium 1.4 L (1.6-2.3) mg/dL Total Bilirubin 0.8 (0.2-1.3) mg/dL AST 20 (14-36) U/L ALT 18 (4-34) U/L Alkaline Phosphatase 63 (38-126) U/L Troponin I (0.000-0.034) ng/mL NT-Pro-B Natriuret Pep pg/mL Total Protein 7.1 (6.3-8.2) g/dL Albumin 4.0 (3.5-5.0) g/dL Lipase 262 (23-300) U/L 07/10/23 07/10/23 07/10/23 Range/Units 16:08 16:08 18:41 WBC (3.8-10.6) k/uL RBC (3.80-5.40) m/uL Hgb (11.4-16.0) gm/dL Hct (34.0-46.0) % MCV (80.0-100.0) fL MCH (25.0-35.0) pg MCHC (31.0-37.0) g/dL RDW (11.5-15.5) % Plt Count (150-450) k/uL MPV Neutrophils % % Lymphocytes % % Monocytes % % Eosinophils % % Basophils % % Neutrophils # (1.3-7.7) k/uL Lymphocytes # (1.0-4.8) k/uL Monocytes # (0-1.0) k/uL Eosinophils # (0-0.7) k/uL Basophils # (0-0.2) k/uL PT (10.0-12.5) sec INR (<1.2) APTT (22.0-30.0) sec D-Dimer (<0.60) mg/L FEU Sodium (137-145) mmol/L Potassium (3.5-5.1) mmol/L Chloride (98-107) mmol/L Carbon Dioxide (22-30) mmol/L Anion Gap mmol/L BUN (7-17) mg/dL Creatinine (0.52-1.04) mg/dL Est GFR (CKD-EPI)AfAm (>60 ml/min/1.73 sqM) Est GFR (CKD-EPI)NonAf (>60 ml/min/1.73 sqM) Glucose (74-99) mg/dL Calcium (8.4-10.2) mg/dL Magnesium (1.6-2.3) mg/dL Total Bilirubin (0.2-1.3) mg/dL AST (14-36) U/L ALT (4-34) U/L Alkaline Phosphatase (38-126) U/L Troponin I <0.012 <0.012 (0.000-0.034) ng/mL NT-Pro-B Natriuret Pep 169 pg/mL Total Protein (6.3-8.2) g/dL Albumin (3.5-5.0) g/dL Lipase (23-300) U/L - EKG Data -: EKG Interpreted by Me EKG Comments: 12-lead Electrocardiogram Interpretation Note EKG was reviewed and interpreted by myself. 12-lead ECG performed at 1522 is interpreted by me as revealing normal sinus rhythm at a rate of 84 beats per minute. [place] is normal. MO interval is 204 ms, QRS duration is 90 ms, QTc is 392 ms. Isolated T-wave inversion in lead III.. There were no ST or T wave abnormalities to suggest myocardial ischemia or injury. R wave progression across the precordium was satisfactory. By my interpretation this EKG is non- diagnostic for acute ischemia. Disposition Clinical Impression: Left shoulder strain Disposition: HOME SELF-CARE Condition: Good Instructions (If sedation given, give patient instructions): Shoulder Sprain (ED) Prescriptions: Cyclobenzaprine [Flexeril] 5 mg PO BID PRN 7 Days #14 tablet PRN Reason: Pain Lidocaine 5% Patch [Lidoderm 5% Patch] 1 patch TOPICAL DAILY PRN 7 Days #14 patch PRN Reason: Pain Is patient prescribed a controlled substance at d/c from ED?: No Referrals: Candice Villarreal MD [Primary Care Provider] - 1-2 days Time of Disposition: 19:58
[2023-07-10 20:19] VITALS: BP 108/62; PULSE 77
== END 2023-07-10 20:36 | disposition home or self-care (01) ==
LOC: EC 15:13
DX: S46.912A Strain of unspecified muscle, fascia and tendon at shoulder and upper arm level, left arm, initial encounter (principal); Z88.5 Allergy status to narcotic agent; Z88.8 Allergy status to other drugs, medicaments and biological substances; X50.9XXA Other and unspecified overexertion or strenuous movements or postures, initial encounter
CPT/HCPCS: 99285; 96374; 96361; 36415; 93005; 85379; 83880; 80053; 83690; 83735; 84484; 85025; 85610; 85730; 71046; 72125; 71275; J1885; Q9967

== ENCOUNTER → 2024-01-02 | Outpatient (CLI) | payer MEDICARE ==
--- NOTE | 2023-11-09 08:15 | MM ---
Reason for Exam: Screening (asymptomatic). Last mammogram was performed 1 year(s) and 11 month(s) ago. Patient History: Menarche at age 13. First Full-Term at age 16. Postmenopausal. Sister had breast cancer. Risk Values: Azra 5 year model risk: 3.0%. NCI Lifetime model risk: 6.4%. Prior Study Comparison: 07/11/2018 Bilateral Screening Mammogram, [facility]. 03/25/2020 Bilateral Screening Mammogram, [facility]. 12/29/2021 Bilateral Screening Mammogram, [facility]. Tissue Density: The breast tissue is heterogeneously dense. This may lower the sensitivity of mammography. Findings: Analyzed By CAD. There is no suspicious group of microcalcifications or new suspicious mass in either breast. Overall Assessment: Benign, BI-RAD 2 Management: Screening Mammogram of both breasts in 1 year. . Patient should continue monthly self-breast exams. A clinical breast exam by your physician is recommended on an annual basis. This exam should not preclude additional follow-up of suspicious palpable abnormalities. Note on Azra scores and lifetime risk: 1. A Azra score greater than 3% is considered moderate risk. If this is the case, consider specialist referral to assess eligibility for a risk reducing agent. 2. If overall lifetime risk for the development of breast cancer is 20% or higher, the patient may qualify for future screening with alternating mammogram and breast MRI. Electronically signed and approved by: Jamin Sarkar M.D. Radiologis
--- NOTE | 2024-01-02 17:42 | BD ---
EXAMINATION TYPE: Axial Bone Density DATE OF EXAM: 01/02/2024 CLINICAL HISTORY: 73 years old Female. ICD-10 CODE: M81.0 AGE-RELATED OSTEOPOROSIS Height: 63 Weight: 160 FRAX RISK QUESTIONS: Family History (Parent hip fracture): no History of Fracture in Adulthood: no Secondary Osteoporosis: yes 3. Menopause before 45: yes 38 RISK FACTORS HISTORY OF: Surgery to Spine/Hip(right/left)/Wrist (right/left): no MEDICATIONS: Thyroid Medications: no Osteoporosis Medications: no EXAM MEASUREMENTS: Bone mineral densitometry was performed using the [employer] System. Bone mineral density as measured about the Lumbar spine is: ----- L1-L4(G/cm2): 0.936 T Score Values are as follows: ----- L1: -2.4 ----- L2: -3.3 ----- L3: -1.7 ----- L4: -1.1 ----- L1-L4: -2.0 Z Score Values are as follows: ----- L1: -0.9 ----- L2: -1.8 ----- L3: -0.2 ----- L4: 0.5 ----- L1-L4: -0.5 Bone mineral density has: Decreased -5.7% since study of: 12/29/2021 Bone mineral density about the R hip (g/cm2): 0.763 Bone mineral density about the L hip (g/cm2): 0.766 T Score values are as follows: -----R Neck: -2.2 -----L Neck: -2.2 -----R Total: -1.9 -----L Total: -1.9 Z Score values are as follows: -----R Neck: -0.4 -----L Neck: -0.6 -----R Total: -0.4 -----L Total: -0.4 Bone mineral density has: a 0% since study of: 12/29/2021 FRAX%s: The graph provided illustrates a 15.8% chance for a major osteoporotic fx and a 4.8% chance f or the hips probability for fx in 10 years time. IMPRESSION: Osteoporosis (T Score less than -2.5). There is increased fracture risk and therapy is usually indicated based on age. Re-Screen 1-2 years. NOTE: T-SCORE=SD OF THE YOUNG ADULT MEAN.
== END | disposition home or self-care (01) ==
LOC: RADMAMWWP 11-08 08:35
PROVIDERS: ATTEND Family Medicine
DX: Z12.31 Encounter for screening mammogram for malignant neoplasm of breast (principal); M81.0 Age-related osteoporosis without current pathological fracture; M85.89 Other specified disorders of bone density and structure, multiple sites; Z78.0 Asymptomatic menopausal state; Z80.3 Family history of malignant neoplasm of breast
CPT/HCPCS: 77063; 77067; 77080